=== PATIENT | female | born 1985 | race Two or more races ===

== ENCOUNTER 2017-01-28 09:44 | Emergency (ER) | payer MEDICAID ==
[~2017-01-28] VITALS: Ht 160 cm; Wt 65.9 kg
[2017-01-28 09:55] VITALS: BP 111/65
== END 2017-01-28 11:03 | disposition home or self-care (01) ==
LOC: ED 09:44
DX: S63.502A Unspecified sprain of left wrist, initial encounter (principal); W01.0XXA Fall on same level from slipping, tripping and stumbling without subsequent striking against object, initial encounter; Y93.89 Activity, other specified; Y99.8 Other external cause status; Y92.89 Other specified places as the place of occurrence of the external cause

== ENCOUNTER 2017-11-12 13:50 | Emergency (ER) | payer MEDICAID ==
[~2017-11-12] VITALS: Ht 160 cm; Wt 74.8 kg
[2017-11-12 14:00] VITALS: Ht 160 cm; Wt 74.8 kg
[2017-11-12 16:18] VITALS: BP 118/64
== END 2017-11-12 16:18 | disposition home or self-care (01) ==
LOC: ED 13:50
DX: S90.112A Contusion of left great toe without damage to nail, initial encounter (principal); W22.8XXA Striking against or struck by other objects, initial encounter; Y93.89 Activity, other specified; Y92.89 Other specified places as the place of occurrence of the external cause; Y99.8 Other external cause status
CPT/HCPCS: Q0092

== ENCOUNTER 2018-09-24 15:29 | Emergency (ER) | payer MEDICAID ==
[~2018-09-24] VITALS: Ht 160 cm; Wt 67.6 kg
[2018-09-24 15:59] VITALS: Ht 160 cm; Wt 67.6 kg
[2018-09-24 18:05] LABS: BASOPHIL % 0.3 % (0-2); PLATELET COUNT 195 x10^3mcL (130-400); RED CELL DISTRIBUTION WIDTH 12.8 % (11.5-14.5)
[2018-09-24 18:25] LABS: UA SPECIFIC GRAVITY 1.015 (1.005-1.035)
[2018-09-24 18:26] LABS: microscopic required? YES; urine erythrocyte 3+ (NEGATIVE)
[2018-09-24 19:20] VITALS: BP 104/67
== END 2018-09-24 19:20 | disposition home or self-care (01) ==
LOC: ED 15:29
PROVIDERS: Emergency Medicine
DX: O20.0 Threatened abortion (principal)
CPT/HCPCS: 36415

== ENCOUNTER 2018-09-25 22:47 | Emergency (ER) | payer MEDICAID ==
[~2018-09-25] VITALS: Ht 160 cm; Wt 67.6 kg
[2018-09-25 23:05] VITALS: Ht 160 cm; Wt 67.6 kg
[2018-09-26 00:28] LABS: BASOPHIL % 0.1 % (0-2); PLATELET COUNT 230 x10^3mcL (130-400); RED CELL DISTRIBUTION WIDTH 12.5 % (11.5-14.5)
[2018-09-26 01:24] VITALS: BP 106/65
== END 2018-09-26 01:24 | disposition home or self-care (01) ==
LOC: ED 22:47
PROVIDERS: Emergency Medicine
DX: O03.9 Complete or unspecified spontaneous abortion without complication (principal); N83.201 Unspecified ovarian cyst, right side
CPT/HCPCS: 36415

== ENCOUNTER 2019-05-09 17:24 | Emergency (ER) | payer OTHER, MEDICAID ==
[~2019-05-09] VITALS: Ht 160 cm; Wt 68.9 kg
[2019-05-09 17:26] VITALS: Ht 160 cm; Wt 68.9 kg
[2019-05-09 20:01] VITALS: BP 128/78
== END 2019-05-09 20:01 | disposition home or self-care (01) ==
LOC: ED 17:24
DX: S39.012A Strain of muscle, fascia and tendon of lower back, initial encounter (principal); M54.6 Pain in thoracic spine; V43.52XA Car driver injured in collision with other type car in traffic accident, initial encounter; Y93.I9 Activity, other involving external motion; Y92.488 Other paved roadways as the place of occurrence of the external cause; Y99.8 Other external cause status
CPT/HCPCS: J1885